=== PATIENT | male | born 1995 | race American Indian/Alaskan Native ===

== ENCOUNTER 2019-06-12 13:23 | Outpatient (CLI) | payer OTHER ==
--- NOTE | 2019-06-12 15:14 | Magnetic Resonance Report ---
MRI RIGHT KNEE WITHOUT CONTRAST INDICATION: Right knee pain, history of right knee dislocation.. COMPARISON: None available. TECHNIQUE: Multisequence, multiplanar images were obtained of the right knee. FINDINGS: There are kissing bone contusions in the medial patellar facet and lateral aspect of the lateral femo ral condyle consistent with recent lateral patellar subluxation. There is a high-grade partial tear o f the medial patellofemoral ligament at the patellar attachment. There is a small focus of corticated calcification adjacent to the lateral aspect of the lateral femo ral condyle indicative of a small bone fragment, likely from previous dislocation. The ACL, PCL, and extensor mechanism otherwise appear intact. The medial and lateral menisci are inta ct. The medial collateral ligament and lateral collateral ligament complex are intact. There is a sma ll joint effusion. Articular cartilage appears intact. IMPRESSION: 1. Findings consistent with recent transient lateral patellar subluxation with kissing bone contusion s in the medial patellar facet and lateral femoral condyle. 2. High-grade partial tear of the medial patellofemoral ligament at the patellar attachment. 3. Well-corticated calcification adjacent to the lateral aspect of the lateral femoral condyle likely secondary to remote prior injury. Signer Name: Daren Gao MD Signed: 06/12/2019 3:10 PM Workstation Name: [email or web address]
== END 2019-06-12 13:24 | disposition home or self-care (01) ==
LOC: MRI 13:23
PROVIDERS: ATTEND Internal Medicine
DX: S83.194A Other dislocation of right knee, initial encounter (principal); X58.XXXA Exposure to other specified factors, initial encounter; Y93.89 Activity, other specified; Y92.89 Other specified places as the place of occurrence of the external cause; Y99.8 Other external cause status
CPT/HCPCS: 73721